=== PATIENT | female | born 1990 | race Caucasian/White ===

== ENCOUNTER 2018-07-21 16:27 | Emergency (ER) | payer MEDICAID ==
[~2018-07-21] VITALS: Ht 165.1 cm; Wt 143.8 kg
[~2018-07-21 16:27] MED LIST: ALBU17AE13 INH; PHEL5 PO
[2018-07-21 16:30] VITALS: BP_SYST 134
[2018-07-21] MEDS ORDERED: NACL 0.9% 1,000 ML IV ONE (17:10)
[2018-07-21] MEDS ORDERED: MORPHINE 4 MG/ML INJ. SYRINGE IVP ONE (17:15)
[2018-07-21] MEDS ORDERED: ONDANSETRON HCL 4 MG/2 ML VIAL IVP ONE (17:15)
[2018-07-21 17:20] LABS: BILIRUBIN,URINE NEGATIVE (NEGATIVE); BLOOD, URINE NEGATIVE (NEGATIVE); CLARITY/URINE CLEAR (CLEAR); COLOR,URINE YELLOW (YELLOW); GLUCOSE,URINE NEGATIVE (NEGATIVE); KETONES,URINE TRACE (NEGATIVE); LEUKOCYTE ESTERASE ,URINE NEGATIVE (NEGATIVE); NITRITE, URINE NEGATIVE (NEGATIVE); PROTEIN URINE NEGATIVE (NEGATIVE); UROBILINOGEN,URINE 0.2 (0.2-1.0)
[2018-07-21 17:57] LABS: BASOPHILS # (AUTO) 0.1 K/uL (0.0-0.2); BASOPHILS % (AUTO) 0.7 % (0.0-2.0); EOSINOPHILS # (AUTO) 0.1 K/uL (0.0-0.4); EOSINOPHILS % (AUTO) 1.7 % (0.0-4.0); HEMOGLOBIN 14.2 g/dL (12.0-16.0); LYMPHOCYTES # (AUTO) 2.7 K/uL (1.0-5.5); LYMPHOCYTES % (AUTO) 31.9 % (20.5-51.5); MEAN CORPUSCULAR HEMOGLOBIN 30 pg (27-31); MEAN CORPUSCULAR HGB CONC 35 % (32-36); MEAN CORPUSCULAR VOLUME 85 fL (79.0-98.0); MONOCYTES # (AUTO) 0.7 K/uL (0.0-1.0); MONOCYTES % (AUTO) 7.6 % (1.7-9.3); NEUTROPHILS % (AUTO) 58.1 % (40.0-70.0); PLATELET COUNT (AUTO) 278 K/uL (130-430); RED BLOOD CELL COUNT(AUTO) 4.71 MIL/uL (4.2-6.2); RED CELL DISTRIBUTION WIDTH 14.1 % (9.0-15.0); WHITE BLOOD COUNT (AUTO) 8.6 K/uL (4.8-10.8)
[2018-07-21 18:06] LABS: CALCIUM 8.3 mg/dL (8.4-11.0); CREATININE 0.72 mg/dL (0.55-1.30); POTASSIUM 3.6 mmol/L (3.5-5.1)
[2018-07-21 18:11] LABS: PROTHROMBIN TIME 10.5 SECS (9.5-12.5)
[2018-07-21 18:16] LABS: ALBUMIN 3.6 g/dL (3.4-4.8); TOTAL BILIRUBIN 0.4 mg/dL (0.0-1.0)
[2018-07-21 20:15] VITALS: BP_SYST 134
== END 2018-07-21 20:15 | disposition home or self-care (01) ==
LOC: SED 16:27
DX: O20.0 Threatened abortion (principal); J45.909 Unspecified asthma, uncomplicated; Z90.49 Acquired absence of other specified parts of digestive tract; Z88.0 Allergy status to penicillin; Z79.899 Other long term (current) drug therapy; Z3A.01 Less than 8 weeks gestation of pregnancy
CPT/HCPCS: 36415; 76801; 76817; 80053; 81003; 82150-TC; 82550-TC; 83605; 83690-TC; 84702-TC; 85025; 85610-TC; 85730-TC; 86900; 86901; 87040-TC; 93005; 99284; J2270; J2405; J7030

== ENCOUNTER 2018-07-24 21:32 | Emergency (ER) | payer MEDICAID ==
[~2018-07-24] VITALS: Ht 165.1 cm; Wt 143.8 kg
[2018-07-24 21:49] VITALS: BP_SYST 158
--- NOTE | 2018-07-24 21:58 | NUR ---
Pt placed to ER waiting room in stable condition.
--- NOTE | 2018-07-24 22:59 | NUR ---
Patient to ER bed 7 to gown for evaluation. Side rails up. Report given to DUSTY GUTIERREZ.
--- NOTE | 2018-07-24 23:02 | NUR ---
Urine collected and sent to lab.
--- NOTE | 2018-07-24 23:05 | NUR ---
Urine HCG done, results POSITIVE.
--- NOTE | 2018-07-24 23:15 | NUR ---
ER Dr. Sanchez at bedside examining patient.
--- NOTE | 2018-07-24 23:27 | NUR ---
Patient given written and verbal discharge instructions and verbalizes understanding. ER MD discussed with patient the results and treatment provided. Patient in stable condition. ID arm band removed. NO Rx of given. Patient educated on pain management and to follow up with PMD. Pain Scale 5/10. Opportunity for questions provided and answered. Medication side effect fact sheet provided.
[2018-07-24 23:28] VITALS: BP_SYST 158
== END 2018-07-24 23:28 | disposition home or self-care (01) ==
LOC: SED 21:32
DX: O26.891 Other specified pregnancy related conditions, first trimester (principal); R10.9 Unspecified abdominal pain; Z90.49 Acquired absence of other specified parts of digestive tract; Z88.0 Allergy status to penicillin; Z79.899 Other long term (current) drug therapy; Z3A.00 Weeks of gestation of pregnancy not specified
CPT/HCPCS: 36415; 81025; 84702-TC; 99283

== ENCOUNTER 2019-01-25 00:55 | Emergency (ER) | payer MEDICAID ==
[~2019-01-25] VITALS: Ht 170.2 cm; Wt 146.1 kg
[2019-01-25 01:00] VITALS: BP_SYST 159
--- NOTE | 2019-01-25 01:05 | NUR ---
Patient to ER bed 8 to gown for evaluation. Side rails up. Report given to Willa GUTIERREZ.
--- NOTE | 2019-01-25 01:08 | NUR ---
ER MD Ceballos at bedside for medical evaluation.
--- NOTE | 2019-01-25 01:10 | NUR ---
Patient AOx4, ambulatory, presents to ER with complaint of right wrist pain 8/10 after hyperextending the wrist x1 week ago. Patient states pain worsens with movement. Patient is 31 weeks . No other symptoms or complaints. Male supervisor coating at bedside.
[2019-01-25] MEDS ORDERED: ACETAMINOPHEN 325 MG TABLET PO ONE (01:30)
[2019-01-25 01:45] VITALS: BP_SYST 142
--- NOTE | 2019-01-25 01:45 | NUR ---
Patient given written and verbal discharge instructions and verbalizes understanding. ER MD discussed with patient the results and treatment provided. Patient in stable condition. ID arm band removed. No Rx given. Patient educated on pain management and to follow up with PMD. Pain Scale 2/10 tolerable to patient. Opportunity for questions provided and answered.
== END 2019-01-25 01:45 | disposition home or self-care (01) ==
LOC: SED 00:55
DX: O9A.213 Injury, poisoning and certain other consequences of external causes complicating pregnancy, third trimester (principal); S63.501A Unspecified sprain of right wrist, initial encounter; J45.909 Unspecified asthma, uncomplicated; Z88.0 Allergy status to penicillin; Z79.899 Other long term (current) drug therapy; Z3A.31 31 weeks gestation of pregnancy
CPT/HCPCS: 99283